=== PATIENT | male | born 1995 | race Caucasian/White ===

== ENCOUNTER 2022-08-15 08:58 | Day surgery (SDC) | payer OTHER ==
--- NOTE | 2022-08-15 09:05 | HP ---
DATE OF SURGERY: 08/15/2022 HISTORY OF PRESENT ILLNESS: The patient is a 27-year-old with no chronic illnesses. No prior surgery. Mother has some sort of autoimmune condition. He had a couple episodes with the first a year ago. Recent episode of pilonidal drainage aches and pain. It has been draining and a little bit better now. He had some pits. He desires definitive excision of pilonidal cyst disease. PAST MEDICAL HISTORY: No chronic illnesses. PAST SURGICAL HISTORY: No prior surgery. MEDICATIONS: No medications on a regular basis. ALLERGIES: NKDA. FAMILY HISTORY: Negative in regards to this problem. SOCIAL HISTORY: He smokes half pack a day. No alcohol use. REVIEW OF SYSTEMS: Fourteen systems reviewed. No chest pain or palpitations. Other systems negative or noncontributory as above and per preadmission questionnaire. PHYSICAL EXAMINATION: Height 5'10". BMI 30. GENERAL: No acute distress. HEENT: Sclerae nonicteric. EOMI. Oral mucous membranes moist. NECK: No JVD. CHEST: Equal excursion, nonlabored breathing. CVS: Regular rate and rhythm. ABDOMEN: Soft. No peritoneal signs. EXTREMITIES: No cyanosis or edema. NEURO: Alert, oriented, moving extremities symmetrically. PSYCH: Appropriate mood and affect. SKIN: Dry. Multiple pilonidal pits. No current drainage or significant induration at this time. IMPRESSION: Ruptured pilonidal cyst disease with spontaneous drainage recently. Discussed surgery at length. General risk of bleeding or infection possibly requiring packing, hematoma, seroma, risk of aches, pains, burning, numbness. Risk of anesthesia sedation, deep venous thrombosis, pulmonary embolism or pneumonia but not limited to. Risk of nonhealing, risk of recurrence, possible need for packing or flap closure, possible dehiscence possibly still requiring packing, 90% heal in 8-12 weeks, 5% have slow healing, 5% fail to heal. Might requiring other procedures or referral to other specialist, general risk of recurrence. Explained the importance of left open and packing on a daily basis. Also explained the importance of keeping all hair away from the wound to improve healing as well as minimize recurrence. If he fails to keep the hair away from the wound will have a high risk of recurrence and have a real high risk of failure to heal. He expressed his understanding and agrees to the planned procedure. Will proceed with outpatient excisional biopsy ruptured pilonidal cyst disease possible packing possible flap closure depending on operative findings.
[2022-08-15] MEDS ORDERED: Lactated Ringers 1,000 ML IV SCH (10:00)
[2022-08-15] MEDS ORDERED: Lactated Ringers 1,000 ML IV ONE ×2 (10:03→14:11)
[2022-08-15] MEDS ORDERED: CEFAZOLIN 2 GM-D5W BAG** 2 GM/50 ML ML IV SCH (10:30)
[2022-08-15] MEDS ORDERED: SUBLIMAZE 100 MCG/2 ML ONE (13:56)
[2022-08-15] MEDS ORDERED: Versed 2 MG/2 ML Injection ONE (13:56)
[2022-08-15] MEDS ORDERED: DIPRIVAN 200 MG/20 ML IV ONE (13:56)
[2022-08-15] MEDS ORDERED: Zemuron 100 MG/10 ML ONE (13:56)
[2022-08-15] MEDS ORDERED: Sensorcaine 0.25% 10 ML ONE (14:01)
[2022-08-15] MEDS ORDERED: TORAdol 30 mg Injection ONE (14:49)
[2022-08-15] MEDS ORDERED: BRIDION 200MG/2ML IV ONE (14:49)
--- NOTE | 2022-08-15 15:11 | OP ---
SURGERY DATE/TIME: 08/15/2022 3230 PREOPERATIVE DIAGNOSIS: History of recurrent infected ruptured pilonidal cyst. POSTOPERATIVE DIAGNOSIS: History of recurrent infected ruptured pilonidal cyst. PROCEDURE: Excisional biopsy of ruptured infected pilonidal cyst with irrigation and packing. . SURGEON: Dr. Neto Donald. ANESTHESIA: General. ESTIMATED BLOOD LOSS: Minimal. INDICATIONS: As noted above. Risks and benefits explained in detail and not limited to and consent obtained. DESCRIPTION OF PROCEDURE AND FINDINGS: The patient is taken to the operating room. General anesthesia was induced. He was placed in prone position, appropriate padding and positioning per anesthesia and OR staff. Prepped and draped in the usual sterile fashion. After official time out and no disagreement with planned procedure, he had multiple pits up in the midline and had an indurated area where he also had infection much cephalad to this. Dissecting down just 1 to 2 mm around these pits inferiorly and dissecting down up to the indurated area removing all granulation tissue of infected pilonidal cyst disease. There is too much purulence draining out of this to make it safe to try to close this. Therefore it was felt it was best to pack it and let it heal by secondary intent this ended up being a 9 cm area. Again there is too much purulent draining out of this to make it safe to try to close it as it will most certainly dehisce. Therefore hemostasis was controlled with some pinpoint cautery. Appeared to have good hemostasis. Packed with normal saline wet to dry. The patient will get opinion from the wound center about possible vac placement if he desires.
[2022-08-15] MEDS ORDERED: DEMEROL 50 MG ONE (15:12)
[2022-08-15 16:11] VITALS: PULSE 92; O2SAT 93
[2022-08-15 16:15] VITALS: BP 96/58
== END 2022-08-15 16:22 | disposition home or self-care (01) ==
LOC: SDC 08:58
PROVIDERS: ATTEND Surgery
DX: L05.91 Pilonidal cyst without abscess (principal)
CPT/HCPCS: J0690; J1885; J2175; J2250; J2704; J3010